=== PATIENT | male | born 1960 | race African-American/Black ===

== ENCOUNTER 2017-11-15 23:43 | Emergency (ER) | payer SELFPAY ==
[~2017-11-15] VITALS: Ht 180.3 cm; Wt 90.9 kg
[2017-11-16] MEDS ORDERED: AZITHROMYCIN 250 MG TABLET PO ONE (01:30)
[2017-11-16] MEDS ORDERED: CefTRIAXone SODIUM 1 GM/VIAL IM ONE (01:30)
[2017-11-16 01:44] VITALS: BP 128/87
[2017-11-16] MEDS ORDERED: LIDOCAINE HCL/PF 1% 2 ML VIAL IM ONE (01:45)
== END 2017-11-16 01:45 | disposition home or self-care (01) ==
LOC: EMS 23:45
DX: N34.2 Other urethritis (principal)
CPT/HCPCS: 96372; 99283; J0696; J3490